=== PATIENT | female | born 1990 | race Two or more races ===

== ENCOUNTER 2019-07-03 11:24 | Emergency (ER) | payer MEDICAID ==
[~2019-07-03] VITALS: Ht 152.4 cm; Wt 48.9 kg
--- NOTE | 2019-07-03 11:44 | NUR ---
PT CAME IN CO OF CHEST PAIN. "IT FEEL LIKES SOMETHING IS PINCHING ME IN MY CHEST. IT CAME ON ALL OF A SUDDEN WHILE I WAS [employer]". PT DENIES CARDIAC HISTORY OR ANY MEDICATION USE. 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 EKG COMPLETE. FRIEND IS BEDSIDE.
[2019-07-03] MEDS ORDERED: KETOROLAC 30 MG/1 ML ONE (11:53)
[2019-07-03] MEDS ORDERED: KETOROLAC 30 MG/1 ML IM ONE (12:00)
[2019-07-03 12:32] VITALS: BP 123/75
--- NOTE | 2019-07-03 12:32 | NUR ---
PT AMBULATED TO BATHROOM WITH STEADY GATE
== END 2019-07-03 12:42 | disposition home or self-care (01) ==
LOC: ED 12:13
DX: M94.0 Chondrocostal junction syndrome [Tietze] (principal)
CPT/HCPCS: 36415; 71046; 85379; 93005; 96372; 99285; J1885